=== PATIENT | female | born 1970 | race Hispanic/Latino ===

== ENCOUNTER 2017-11-17 06:06 | Day surgery (SDC) | payer BC ==
[2017-11-16 18:05] LABS: Absolute Lymphocytes (CBC) 2.6 K/uL (0.7-4.9); Absolute Monocytes 0.4 K/uL (0.1-1.3); Absolute Neutrophil 2.9 K/uL (1.8-8.0); Basophils % 0.9 % (0-1.3); Eosinophils % 1.6 % (0-4.4); Hematocrit 32.8 % (36.0-45.0); Lymphocytes % 43.8 % (15.3-44.8); MCH 24.4 pg (27.0-35.0); MCV 74.9 fL (80-100); MPV 8.8 fL (7.6-11.3); RBC Red Blood Cell Count 4.38 M/uL (3.86-4.86)
--- OUTSIDE RECORDS SUMMARY | 2017-11-17 06:17 | XMS REPORT | Clinical Summary ---
:1970 Author Organization [facility] Address [address] [place] [id number] Care Team Providers Name Role Phone Salomón Dexter MD Primary Care Provider Allergies Not on File Current Medications Not on file Active Problems Not on file Encounters Date Type Specialty Care Team Description 07/22/2017 Hospital Encounter Radiology 01/11/2017 Hospital Encounter Radiology Salomón Dexter Abnormal mammogram [facility] 01/11/2017 Hospital Encounter Radiology Salomón Dexter Abnormal mammogram [facility] 01/11/2017 Hospital Encounter Radiology Salomón Dexter Abnormal mammogram [facility] 01/11/2017 Hospital Encounter Radiology Salomón Dexter Abnormal mammogram [facility] 12/30/2016 Hospital Encounter Salomón Mcdonald Canceled (Schedule Order [facility] Error) 12/30/2016 Ancillary Orders Radiology Salomón Dexter MD 12/30/2016 Transcribe Orders Radiology Salomón Dexter Abnormal mammogram [facility] (Primary Dx) after 11/16/2016 Social History Tobacco Use Types Packs/Day Years Used Date Never Assessed Sex Assigned at Date Recorded Not on file Last Filed Vital Signs Not on file Plan of Treatment Health Maintenance Due Date Last Done Comments CERVICAL CANCER SCREENING 1990 INFLUENZA VACCINE 09/21/2017 Procedures Procedure Name Priority Date/Time Associated Comments Diagnosis MAMMO DIAGNOSTIC W Routine 01/11/2017 12:36 PM Abnormal mammogram Results for this CAD LEFT [employer]YSICAL SCI[employer]ES PROFESSOR procedure are in the results section. 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 MAMMO EXTERNAL STUDY Routine 12/01/2016 9:15 AM Results for this CDT procedure are in the results section. after 11/16/2016 Results Mammo Diagnostic w Cad Left (01/11/2017 12:36 PM) Narrative Performed At PROCEDURE: MAMMO DIAGNOSTIC W CAD LEFT, US BREAST COMPLETE LEFT [facility] Left real-time whole breast sonography included all four quadrants and the retroareolar region under close supervision by the radiologist. Computer aided detection was utilized for the interpretation. HISTORY:46-year-old asymptomatic patient who previously underwent mammogram and ultrasound for a mass on mammogram without sonographic correlate. A stereotactic guided biopsy was recommended, but the patient presents today for diagnostic mammogram and ultrasound for additional evaluation. COMPARISON: 12/01/2016 DENSITY: There are scattered areas of fibroglandular density. FINDINGS: A few scattered coarse benign-appearing calcifications are noted. Spot compression magnification views of the lower outer left breast demonstrates a subtle 7 mm low-density circumscribed mass at the left breast 4 o'clock position 7 cm from the nipple. A 4 mm low-density circumscribed mass is noted at the 12 o'clock position of the left breast 4 cm from the nipple as well. ULTRASOUND: Unilateral left whole breast sonography demonstrates a 6 x 5 x 4 mm group of anechoic simple cysts with thin internal septation at the left breast 4 o'clock position 7 cm from the nipple. This represents a sonographic correlate to the low density mass seen on mammogram. A 3 mm anechoic cyst is noted at the left breast 12 o'clock position 2 cm from the nipple representing a sonographic correlate to the 4 mm mass seen on mammogram. There is no suspicious solid or cystic mass or acoustic abnormality. IMPRESSION: 1. No mammographic or sonographic findings of malignancy in the left breast. 2. The previously described mass in the lower outer left breast likely corresponds to a 6 mm group of anechoic simple cysts not identified on prior outside ultrasound. RECOMMENDATION: Recommend short interval follow-up left diagnostic mammogram and ultrasound in 3 to 6 months to ensure stability of this probably benign finding. Findings and recommendations discussed with the patient at the time of the breast ultrasound. BI-RADS 3: PROBABLY BENIGN This facility is accredited by the [employer] for Mammography. A negative x-ray report should not delay biopsy if a dominant or clinically suspicious mass is present.Not all cancers are identified by x-ray. [id number] Performing Organization Address City/State/Zipcode Phone Number [facility] [address] [place] [address] US Breast Complete Left (01/11/2017 12:27 PM) Narrative Performed At PROCEDURE: MAMMO DIAGNOSTIC W CAD LEFT, US BREAST COMPLETE LEFT [facility] Left real-time whole breast sonography included all four quadrants and the retroareolar region under close supervision by the radiologist. Computer aided detection was utilized for the interpretation. HISTORY:46-year-old asymptomatic patient who previously underwent mammogram and ultrasound for a mass on mammogram without sonographic correlate. A stereotactic guided biopsy was recommended, but the patient presents today for diagnostic mammogram and ultrasound for additional evaluation. COMPARISON: 12/01/2016 DENSITY: There are scattered areas of fibroglandular density. FINDINGS: A few scattered coarse benign-appearing calcifications are noted. Spot compression magnification views of the lower outer left breast demonstrates a subtle 7 mm low-density circumscribed mass at the left breast 4 o'clock position 7 cm from the nipple. A 4 mm low-density circumscribed mass is noted at the 12 o'clock position of the left breast 4 cm from the nipple as well. ULTRASOUND: Unilateral left whole breast sonography demonstrates a 6 x 5 x 4 mm group of anechoic simple cysts with thin internal septation at the left breast 4 o'clock position 7 cm from the nipple. This represents a sonographic correlate to the low density mass seen on mammogram. A 3 mm anechoic cyst is noted at the left breast 12 o'clock position 2 cm from the nipple representing a sonographic correlate to the 4 mm mass seen on mammogram. There is no suspicious solid or cystic mass or acoustic abnormality. IMPRESSION: 1. No mammographic or sonographic findings of malignancy in the left breast. 2. The previously described mass in the lower outer left breast likely corresponds to a 6 mm group of anechoic simple cysts not identified on prior outside ultrasound. RECOMMENDATION: Recommend short interval follow-up left diagnostic mammogram and ultrasound in 3 to 6 months to ensure stability of this probably benign finding. Findings and recommendations discussed with the patient at the time of the breast ultrasound. BI-RADS 3: PROBABLY BENIGN This facility is accredited by the [employer] for Mammography. A negative x-ray report should not delay biopsy if a dominant or clinically suspicious mass is present.Not all cancers are identified by x-ray. [id number] Performing Organization Address City/State/Zipcode Phone Number [facility] [phone] [place] [address] Mammo External Study (12/01/2016 9:15 AM) Narrative Performed At This exam was not acquired at a [facility] facility and has not been [facility] interpreted by a [facility] Provider.The exam was imported into our imaging system for comparisons purposes. Performing Organization Address City/State/Zipcode Phone Number [facility] [id number] [place] [address] after 11/16/2016 Insurance Payer Benefit Plan / Group Subscriber ID Type Phone Address BCBS BCBS CHOICE PPO/FEDERAL EMPL PPO xxxxxxxxxxxxxxx PPO
[2017-11-17] MEDS: Ringers Lactate 1,000 ML IV ONE ×2 (06:47→07:21)
[2017-11-17] MEDS ORDERED: FENTANYL CITR 100 MCG/2 ML ONE (06:53)
[2017-11-17] MEDS ORDERED: MIDAZOLAM HCL 2 MG/2 ML INJ ONE (06:53)
[2017-11-17] MEDS ORDERED: PROPOFOL 200 MG/20 ML VIAL IV ONE (06:53)
[2017-11-17] MEDS ORDERED: LIDOCAINE 2% MPF 5 ML VIAL ONE (06:54)
[2017-11-17] MEDS ORDERED: NA CHLORIDE 0.9% 1,000 ML ONE (07:10)
[2017-11-17] MEDS ORDERED: NS 0.9% VIAL 10 ML ONE (07:10)
[2017-11-17] MEDS ORDERED: SILVER NITRATE 1 APPL TOP ONE (07:10)
[2017-11-17] MEDS ORDERED: VASOPRESSIN 20 UNIT/ML VIAL ONE (07:11)
[2017-11-17] MEDS ORDERED: NS 0.9% VIAL 20 ML ONE (07:23)
[2017-11-17] MEDS ORDERED: DEXAMETHASONE 10 MG/ML VIAL ONE (07:31)
[2017-11-17] MEDS ORDERED: KETOROLAC 30 MG/ML INJ ONE ×2 (07:32→08:06)
[2017-11-17] MEDS ORDERED: ONDANSETRON HCL 40 MG/20 ML VIAL ONE (07:41)
[2017-11-17] MEDS ORDERED: KETOROLAC 30 MG/ML INJ IV ONE (07:58)
--- NOTE | 2017-11-17 08:02 | P.BOP ---
Preoperative diagnosis: Menorrhagia Postoperative diagnosis: same Primary procedure: hysteroscopy, D&C, Novasure ablation Estimated blood loss: Less than 5ml Specimen: endometrial currettings Anesthesia: General Transferred to: Recovery Room Condition: Good
[2017-11-17] MEDS ORDERED: MEPERIDINE HCL 25 MG/0.5 ML ONE (08:48)
[2017-11-17] MEDS ORDERED: ONDANSETRON 4 MG/2 ML VIAL ONE (08:49)
[2017-11-17] MEDS ORDERED: MELOXICAM 7.5 MG TAB PO SCH (09:00)
[2017-11-17] MEDS ORDERED: HOME MED 1 EA UNK (Omeprazole [Omeprazole] 20 MG) PO SCH (09:00)
[2017-11-17] MEDS ORDERED: HYDROXYCHLOROQUINE 200MG TAB PO SCH (09:00)
[2017-11-17] MEDS ORDERED: DIPHENHYDRAMINE 25 MG TAB/CAP ONE (09:13)
--- NOTE | 2017-11-17 09:18 | PREOPHP ---
Date of Admission: 11/17/2017 History Of Present Illness: Ms. Benton is a 47-year-old female, 3, para 2-0- 0-2, who comes in today preoperatively. She is scheduled for a hysteroscopy, D and C, NovaSure endom etrial ablation for menometrorrhagia. Has been treated with control pills without success in c ontrolling her bleeding. Pap smear is normal. Endometrial biopsy is suggestive of a polyp, but no e vidence of a precancer, and she has not responded to oral contraceptives. She comes in for more defi nitive therapy and evaluation. Past Medical History: Includes 3 prior vaginal deliveries, prior tubal ligation, prior cholecystecto my. Current Medications: Include oral contraceptives, meloxicam, hydroxychloroquine and iron supplements . Allergies: SHE HAS ALLERGY TO PENICILLIN, CAUSING HIVES. Social History: She does not smoke. Family History: Noncontributory. Review of Systems: She reports no recent cough, cold, fever, or chills. No recent nausea or vomiting. She denies any b reast lumps or knots. She denies any bowel issues or bladder issues. Physical Examination: Lungs: Clear. Cardiac: Regular rate and rhythm without murmurs. Abdomen: There is no organosplenomegaly. Pelvic: Uterus normal size, freely mobile. No obvious adnexal masses or tenderness. Impression: Menorrhagia. Plan: The patient will undergo hysteroscopy, D and C, NovaSure endometrial ablation. She has signed operative permit in my presence. CASEY/YOLANDA Voice ID: [id number]
[2017-11-17] MEDS ORDERED: ACETAMINOPHEN 500 MG TAB ONE (10:24)
--- NOTE | 2017-11-17 19:06 | OP ---
Surgeon: Salomón Engle MD Preoperative Diagnosis: Menorrhagia. Procedures: Hysteroscopy. Dilatation and curettage. NovaSure endometrial ablation. Postoperative Diagnosis: Menorrhagia. Description Of Procedure: After satisfactory level of general anesthesia, the patient was prepped an d draped in the usual fashion in high leg holders. A weighted speculum placed in posterior vagina. Cervix visualized and grasped with a single-tooth tenaculum. Hysteroscopy revealed no obvious endome trial lesions. Brief curettage performed productive of minimal tissue. NovaSure ablation was perfor med with a cavity length of 6.5 cm cavity width of 4 cm, wattage of 143 blue for 57 seconds. The ca vity was ablated. NovaSure device removed. The patient was awakened, taken to recovery room in sati sfactory condition. Estimated total blood loss was less than 5 mL. The patient tolerated all proced ures well. Anesthesia: Wild Roldan CRNA, and Dr. Romain Navas. CASEY/NISREENL Voice ID: [id number] Report ID: [id number]
--- NOTE | 2017-11-17 19:06 | DS ---
Date of Discharge: 11/17/2017 Final Hospital Discharge Diagnosis: Menorrhagia. Complications: None. Procedures: Hysteroscopy, dilatation and curettage of the uterine endometrium. NovaSure endometrial ablation. Hospital Course: The patient is a 47-year-old female admitted for treatment of menorrhagia . She underwent hysteroscopy, D and C, NovaSure endometrial ablation. She was dismissed to be seen back in my office in 2 weeks with prescription for Tylenol No. 3, number 5 for pain relief. Lab work included an admission hemoglobin and hematocrit of 10.7 and 32.8, and a serum test that wa s negative. She was dismissed with the usual post D and C activity restrictions. CASEY/YOLANDA Voice ID: [id number] Report ID: [id number]
== END 2017-11-17 10:55 | disposition home or self-care (01) ==
LOC: OR 06:06
PROVIDERS: ATTEND Specialist
PROC: 0U5B8ZZ Destruction of Endometrium, Via Natural or Artificial Opening Endoscopic (ICD-10-PCS; principal; 2017-11-17 07:30)
PROC: 0UDB7ZX Extraction of Endometrium, Via Natural or Artificial Opening, Diagnostic (ICD-10-PCS; 2017-11-17 07:30)
DX: N92.0 Excessive and frequent menstruation with regular cycle (principal); K21.9 Gastro-esophageal reflux disease without esophagitis; Z90.49 Acquired absence of other specified parts of digestive tract; Z88.0 Allergy status to penicillin
CPT/HCPCS: 36415; 84703; 85025; 88305; J1100; J2175; J2250; J2405; J3010; J7030

== ENCOUNTER 2018-09-28 06:35 | Day surgery (SDC) | payer BC ==
[2018-09-25 11:36] LABS: Urine Appearance CLEAR; Urine Bilirubin NEGATIVE (NEG); Urine Blood 3+ (NEG); Urine Color YELLOW; Urine Glucose NEGATIVE (NEG); Urine Protein NEGATIVE (NEG); Urine Specific Gravity 1.025 (1.005-1.030); Urine Urobilinogen 0.2 mg/dL (0.2-1.0)
[2018-09-25 11:40] LABS: Absolute Lymphocytes (CBC) 2.4 K/uL (0.7-4.9); Hematocrit 38.1 % (36.0-45.0); Lymphocytes % 31.2 % (15.3-44.8); MPV 7.8 fL (7.6-11.3); RBC Red Blood Cell Count 4.61 M/uL (3.86-4.86)
[2018-09-25 12:25] LABS: Urine Microscopic Reflex ORDER UMIC
[2018-09-25 12:35] LABS: Urine Amorphous Sediment 2+ /HPF (NONE SEEN); Urine Bacteria 20-50 /HPF (<20); Urine Culture Reflex Order REFLEXED; Urine Mucus 4+ /HPF (NONE SEEN)
--- OUTSIDE RECORDS SUMMARY | 2018-09-28 06:39 | XMS REPORT | Clinical Summary ---
:1970 Author Organization [facility] Address [address] [place] [id number] Care Team Providers Name Role Phone Verna Salamanca [employer] Primary Care Provider Allergies Active Allergy Reactions Severity Noted Date Comments Penicillins Low 12/21/2016 Other reaction(s): Ampicillin ([id number]) Medications Medication Sig Dispensed Refills Start End Date Status Date omeprazole (PriLOSEC) omeprazole 20 mg capsule,delayed release 0 Active 20 MG capsule Take 1 capsule every day by oral route for 30 days. hydroxychloroquine Take 1 tablet 60 tablet 11 07/22/19 Active (PLAQUENIL) 200 mg (200 mg total) 9 20 tablet by mouth 2 (two) times a day. XELJANZ XR 11 mg tablet TAKE ONE 30 tablet 0 Active extended release 24 hr TABLET BY 9 MOUTH ONCE DAILY. MAY BE TAKEN WITH OR WITHOUT FOOD. SWALLOW TABLET WHOLE. DO NOT CRUSH, SPLIT OR CHEW. STORE AT ROOM TEM tofacitinib (XELJANZ Take 11 mg by 30 tablet 3 09/05/19 Discontinued XR) 11 mg tablet mouth daily. 9 19 extended release 24 hr Active Problems Problem Noted Date History of transfusion 11/21/2017 Allergic Anemia Arthritis Headache Encounters Date Type Specialty Care Team Description 09/04/2018 Refill Rheumatology Dewey Mcallister DO 08/31/2018 Telephone Rheumatology Siobhan Goldman MA 08/04/2018 Telephone Rheumatology Siobhan Goldman MA 07/31/2018 Telephone Rheumatology Luis Estrada MA 07/28/2018 Refill Rheumatology Keara Palacio MA 07/27/2018 Orders Only Rheumatology ProviderShad MD 07/25/2018 Orders Only Rheumatology Dewey Mcallister DO 07/21/2018 Office Visit Rheumatology Dewey Mcallister DO Rheumatoid arthritis with unknown rheumatoid factor status (HCC) (Primary Dx); Sjogren's syndrome, with unspecified organ involvement (HCC); Medication monitoring encounter; Long-term use of high-risk medication; Gastroesophageal reflux disease without esophagitis; Elevated blood pressure reading; Dyspnea on exertion; Dyspnea, unspecified type after 09/27/2017 Family History Medical History Relation Name Comments No Known Problems Brother No Known Problems Father Hypertension Mother Stroke Mother No Known Problems Sister Relation Name Status Comments Brother Father Mother Sister Son Nabor Alive NF2 Social History Tobacco Use Types Packs/Day Years Used Date Never Smoker Smokeless Tobacco: Never Used Alcohol Use Drinks/Week oz/Week Comments Yes 1 Glasses of wine 0.6 Sex Assigned at Date Recorded Not on file Job Start Date Occupation Industry Not on file Not on file Not on file Travel History Travel Start Travel End No recent travel history available. Last Filed Vital Signs Vital Sign Reading Time Taken Blood Pressure 147/95 07/21/2018 2:24 PM CDT Pulse 89 07/21/2018 2:24 PM CDT Temperature 36.7 C (98.1 F) 07/21/2018 2:24 PM CDT Respiratory Rate - - Oxygen Saturation 97% 07/21/2018 2:24 PM CDT Inhaled Oxygen Concentration - - Weight 87.1 kg (192 lb) 07/21/2018 2:24 PM CDT Height 160 cm (5' 3") 07/21/2018 2:24 PM CDT Body Mass Index 34.01 07/21/2018 2:24 PM CDT Plan of Treatment Health Maintenance Due Date Last Done Comments INFLUENZA VACCINE 09/21/2018 Procedures Procedure Name Priority Date/Time Associated Comments Diagnosis QUANTIFERON-TB GOLD Routine 07/21/2018 3:55 Results for this PLUS PM CDT procedure are in the results section. QUANTIFERON-TB GOLD Routine 07/21/2018 3:55 Long-term use of Results for this PLUS PM CDT high-risk procedure are in medication the results section. HEPATITIS B SURFACE Routine 07/21/2018 3:55 Long-term use of Results for this ANTIBODY PM CDT high-risk procedure are in medication the results section. HEPATITIS C ANTIBODY Routine 07/21/2018 3:55 Long-term use of Results for this PM CDT high-risk procedure are in medication the results section. HEPATITIS B CORE Routine 07/21/2018 3:55 Long-term use of Results for this ANTIBODY IGM PM CDT high-risk procedure are in medication the results section. HEPATITIS B SURFACE Routine 07/21/2018 3:55 Long-term use of Results for this ANTIGEN PM CDT high-risk procedure are in medication the results section. HLA-B27 ANTIGEN Routine 07/21/2018 3:40 Elevated blood Results for this PM CDT pressure reading procedure are in the results section. CYCLIC CITRULLINATED Routine 07/21/2018 3:40 Rheumatoid Results for this PEPTIDE AB, IGG PM CDT arthritis with procedure are in unknown rheumatoid the results factor status (HCC) section. RHEUMATOID FACTOR Routine 07/21/2018 3:40 Rheumatoid Results for this PM CDT arthritis with procedure are in unknown rheumatoid the results factor status (HCC) section. C-REACTIVE PROTEIN Routine 07/21/2018 3:40 Rheumatoid Results for this PM CDT arthritis with procedure are in unknown rheumatoid the results factor status (HCC) section. SEDIMENTATION RATE Routine 07/21/2018 3:40 Rheumatoid Results for this PM CDT arthritis with procedure are in unknown rheumatoid the results factor status (HCC) section. COMPREHENSIVE Routine 07/21/2018 3:40 Medication Results for this METABOLIC PANEL PM CDT monitoring procedure are in encounter the results section. CBC WITH PLATELET AND Routine 07/21/2018 3:40 Medication Results for this DIFFERENTIAL PM CDT monitoring procedure are in encounter the results section. CT ANGIOGRAM CHEST W Routine 10/26/2017 WO CONTRAST after 09/27/2017 Results QuantiFERON-TB Gold Plus (07/21/2018 3:55 PM CDT) Quantiferon criteria Comment [facility] 02 Comment: The QuantiFERON-TB Gold Plus result is determined by subtracting the Nil value from either TB antigen (Ag) tube. The mitogen tube serves as a control for the test. QuantiFERON TB1 Ag 0.02 IU/mL [facility] 02 Value QuantiFERON TB2 Ag 0.03 IU/mL [facility] 02 Value Quantiferon NIL value 0.02 IU/mL [facility] 02 Quantiferon mitogen >10.00 IU/mL [facility] 02 value Specimen Narrative Performed At Performed at:[address] [place], [place] [address]CO [address] [place], [id number] Clam Digger: Peter Costa MD, Phone:[phone] Performing Organization Address [facility] Phone Number [facility] 02 QuantiFERON-TB Gold Plus (07/21/2018 3:55 PM CDT) [facility] QuantiFERON Incubation [facility] Incubation performed. Quantiferon TB gold Negative Negative [facility] 02 plus Specimen Narrative Performed At Performed at: [id number] Clam Digger: Shad Rojo MD, Phone:[phone] Performed at:[address] [place], [place] [id number] Clam Digger: Peter Costa MD, Phone:[phone] Performing Organization Address [facility] Phone Number [facility] 02 Hepatitis C antibody (07/21/2018 3:55 PM CDT) [facility] Hepatitis C Ab 0.1 0.0 - 0.9 s/co [facility] Comment: ratio Negative: < 0.8 Indeterminate: 0.8 - 0.9 Positive: > 0.[address] [facility] recommends that a positive HCV antibody result be followed up with a HCV Nucleic Acid Amplification test (314809). Specimen Blood Narrative Performed At Performed at: [facility]CO[id number] Clam Digger: Shad Rojo MD, Phone:[phone] Performing Organization Address [facility] Phone Number [facility] Hepatitis B core antibody IgM (07/21/2018 3:55 PM CDT) [facility] Hepatitis B core IgM Negative Negative [facility] Specimen Blood Narrative Performed At Performed at: [facility]CO[id number] Clam Digger: Shad Rojo MD, Phone:[phone] Performing Organization Address [facility] Phone Number [facility] Hepatitis B surface antibody (07/21/2018 3:55 PM CDT) [facility] Hepatitis B surface Non Reactive [facility] Ab Comment: Non Reactive: Inconsistent with immunity, less than 10 mIU/mL Reactive: Consistent with immunity, greater than 9.9 mIU/ mL Specimen Blood Narrative Performed At Performed at:01 - [facility] [place], [id number] Clam Digger: Shad Rojo MD, Phone:[phone] Performing Organization Address [facility] Phone Number [facility] Hepatitis B surface antigen (07/21/2018 3:55 PM CDT) Pathologist [facility] Hepatitis B surface Ag Negative Negative [facility] Specimen Blood Narrative Performed At Performed at: - [facility] [address] [place], [place] [id number] Clam Digger: Shad Rojo MD, Phone:[phone] Performing Organization Address [facility] Phone Number [facility] HLA-B27 antigen (07/21/2018 3:40 PM CDT) Pathologist [facility] HLA B27 Positive [facility] Comment: HLA-B*27 Positive This patient is positive for HLA-B*27. This procedure rules out the B*27:06 and 27:09 alleles, which the literature suggests are not associated with spondyloarthropathies. B27 allele interpretation for all loci based on IMGT/HLA database version 3.33.0 This test was developed and its performance characteristics determined by [facility].It has not been cleared or approved by the Food and Drug Administration. [facility] CLIA ID Number [id number] This test was performed using PCR (Polymerase Chain Reaction)/SSOP (Sequence Specific Oligonucleotide Probes) technique.SBT (Sequence Based Typing) and/or SSP (Sequence Specific Primers) may be used as supplemental methods when necessary.Please contact [facility] Customer Service at if you have any questions. Director of HLA Laboratory Dr Garrett Plascencia, PhD Specimen Blood Narrative Performed At Performed at:01 - [facility] DNA [facility] [address] [place], [place] [id number] Clam Digger: Garrett Plascencia PhD, Phone:[phone] Performing Organization Address [facility] Phone Number [facility] Cyclic citrullinated peptide antibody, IgG (07/21/2018 3:40 PM CDT) Pathologist [facility] Cyclic citrullin 20 (H) 0 - 19 units [facility] peptide Ab Comment: Negative <20 Weak positive 20 - 39 Moderate [id number] - 59 Strong positive >59 Specimen Blood Narrative Performed At Performed at: - [facility] [address] [facility], [id number] Clam Digger: Peter Costa MD, Phone:[phone] Performing Organization Address City/[facility] Phone Number [facility] Sedimentation rate (07/21/2018 3:40 PM CDT) Sedimentation rate 6 0 - 32 mm/hr [facility] Specimen Blood Narrative Performed At Performed at: - [facility] [address] [facility], [id number] Clam Digger: Shad Rojo MD, Phone:[phone] Performing Organization Address [facility] Phone Number [facility] CBC with platelet and differential (07/21/2018 3:40 PM CDT) WBC 8.4 3.4 - 10.8 [facility] x10E3/uL RBC 4.55 3.77 - 5.28 [facility] x10E6/uL HGB 12.1 11.1 - 15.9 [facility] g/dL HCT 36.9 34.0 - 46.6 % [facility] MCV 81 79 - 97 fL [facility] MCH 26.6 26.6 - 33.0 pg [facility] MCHC 32.8 31.5 - 35.7 [facility] g/dL RDW 15.5 (H) 12.3 - 15.4 % [facility] Platelet count 369Comment: 150 - 450 [facility] Please x10E3/uL note reference interval change Neutrophils 60 Not Estab. % [facility] Lymphocytes 32 Not Estab. % [facility] Monocytes 6 Not Estab. % [facility] Eosinophils 2 Not Estab. % [facility] Basophils 0 Not Estab. % [facility] Neutrophils, absolute 5.0 1.4 - 7.0 [facility] x10E3/uL Lymphocytes, absolute 2.7 0.7 - 3.1 [facility] x10E3/uL Monocytes, absolute 0.5 0.1 - 0.9 [facility] x10E3/uL Eosinophils, absolute 0.1 0.0 - 0.4 [facility] x10E3/uL Basophils, absolute 0.0 0.0 - 0.2 [facility] x10E3/uL Immature granulocytes 0 Not Estab. % [facility] Immature grans (abs) 0.0 0.0 - 0.1 [facility] x10E3/uL Specimen Blood Narrative Performed At Performed at:[address] [place], [place] [id number] Clam Digger: Shad Rojo MD, Phone:[phone] Performing Organization Address [facility] Phone Number [facility] Rheumatoid factor (07/21/2018 3:40 PM CDT) Pathologist [facility] Rheumatoid arthritis latex 12.9 0.0 - 13.9 IU/mL [facility] turbid Specimen Blood Narrative Performed At Performed at:[address] [place], [place] [id number] Clam Digger: Shad Rojo MD, Phone:[phone] Performing Organization Address [facility] Phone Number [facility] C-reactive protein (07/21/2018 3:40 PM CDT) Pathologist [facility] CRP 10.4 (H) 0.0 - 4.9 mg/L [facility] Comment: Effective August 07, 2018 the reference interval for C-Reactive Protein, Quant, will be changing to: Age Male Female 0- 30 days Not Estab. Not Estab. 1 month - 17 years 0 -7 0 -9 >17 years 0 - 10 0 - 10 Specimen Blood Narrative Performed At Performed at:[address] [place], [place] [id number] Clam Digger: Shad Rojo MD, Phone:[phone] Performing Organization Address [facility] Phone Number [facility] Comprehensive metabolic panel (07/21/2018 3:40 PM CDT) Pathologist [facility] Glucose 92 65 - 99 mg/dL [facility] BUN, whole blood 14 6 - 24 mg/dL [facility] Creatinine 0.84 0.57 - 1.00 mg/dL [facility] EGFR Non-Afr. Luxembour[place] 82 >59 mL/min/1.73 [facility] EGFR 95 >59 mL/min/1.73 [facility] BUN/creatinine ratio 17 9 - 23 [facility] Sodium 138 134 - 144 mmol/L [facility] Potassium 4.2 3.5 - 5.2 mmol/L [facility] Chloride 103 96 - 106 mmol/L [facility] CO2 22 20 - 29 mmol/L [facility] Calcium 8.9 8.7 - 10.2 mg/dL [facility] Protein 7.2 6.0 - 8.5 g/dL [facility] Albumin, S 4.3 3.5 - 5.5 g/dL [facility] Globulin, total 2.9 1.5 - 4.5 g/dL [facility] Albumin/globulin ratio 1.5 1.2 - 2.2 [facility] Total bilirubin 0.4 0.0 - 1.2 mg/dL [facility] Alkaline phosphatase 113 39 - 117 IU/L [facility] AST 14 0 - 40 IU/L [facility] ALT 16 0 - 32 IU/L [facility] Specimen Blood Narrative Performed At Performed at:01 - [facility] [address] [place], [id number] Clam Digger: Shad Rojo MD, Phone:[phone] Performing Organization Address City/State/[place] Phone Number [facility] CTA Chest W Wo Contrast (10/26/2017) Narrative Performed At after 09/27/2017 Advance Directives Patient has advance care planning documents on file. For more information, please contact:[id number] [place] [address]
--- OUTSIDE RECORDS SUMMARY | 2018-09-28 06:39 | XMS REPORT | Continuity of Care Document ---
:1970 Author Organization [facility] Address [address] [place] [address] Phone Unavailable Care Team Providers Name Role Phone BRITTANY VASQUES NP Primary Care Physician Insurance Providers Guarantor Sharee Benton Address [address] [address] Email [email or web address] Payer [facility] Policy Number [id number] Subscriber's Name Sathish Benton Relationship Spouse Group Number [id number] Group Name NA Advance Directives Directive Response Recorded Date/Time Patient/Family Given Education Material R/T Y - 10/26/17..AH 10/26/17 12: 18pm Directives? Problems No problem information available. Medications No medication information available. Social History No social history information available. Hospital Discharge Instructions No hospital discharge instruction information available. Plan of Care Prescriptions See Medication Section Functional Status No functional status information available. Allergies, Adverse Reactions, Alerts Allergen Type Severity Reaction Status Last Updated Ampicillin ([id number]) Allergy Mild Active 12/21/16 Immunizations No immunization information available. Vital Signs Acute Vital Signs Vital Response Date/Time Blood Pressure 132/87 mm Hg 10/26/2017 2:06pm Pulse Pulse Rate (adult) 93 beats per minute (60 - 100) 10/26/2017 2:06pm Respiratory Rate 18 breaths per minute (10 - 24) 10/26/2017 2:06pm Temperature Source Temporal Artery Scan 10/26/2017 2:06pm Results Laboratory Results Test Name Result Units Flags Reference Collection Result Comments Date/Time Date/Time White Blood Count 7.9 K/ul 4.0-11.5 10/25/2017 10/25/2017 5:09pm 5:24pm Red Blood Count 3.48 M/ul L 3.80-5.20 10/25/2017 10/25/2017 5:09pm 5:24pm Hemoglobin 7.4 g/dl #L* 10.5-15.7 10/25/2017 10/25/2017 Results have been broadcasted to patient's location and 5:09pm 5:24pm called to (S/W BRITTANY LOZA). By JAKE GARCIA 10/25/17 @9898 Results read back for confirmation. Hematocrit 24.9 % #L 34.0-50.0 10/25/2017 10/25/2017 5:09pm 5:24pm Mean Corpuscular 71.6 fl L 78-98 10/25/2017 10/25/2017 Volume 5:09pm 5:24pm Mean Corpuscular 21.3 pg L 26.2-33.4 10/25/2017 10/25/2017 Hemoglobin 5:09pm 5:24pm Mean Corpuscular 29.8 g/dl L 31.5-36.2 10/25/2017 10/25/2017 Hemoglobin Concent 5:09pm 5:24pm Red Cell 17.5 % H 11.5-15.5 10/25/2017 10/25/2017 Distribution Width 5:09pm 5:24pm Platelet Count 391 K/ul H 137-338 10/25/2017 10/25/2017 5:09pm 5:24pm Mean Platelet 5.1 fl L 8.4-11.8 10/25/2017 10/25/2017 Volume 5:09pm 5:24pm Neutrophils (%) 52.6 % 44.4-80.1 10/25/2017 10/25/2017 (Auto) 5:09pm 5:24pm Lymphocytes (%) 39.7 % 10.0-50.0 10/25/2017 10/25/2017 (Auto) 5:09pm 5:24pm Monocytes (%) 5.6 % 3.6-12.04 10/25/2017 10/25/2017 (Auto) 5:09pm 5:24pm Eosinophils (%) 1.1 % 0.0-5.41 10/25/2017 10/25/2017 (Auto) 5:09pm 5:24pm Basophils (%) 1.0 % H 0.0-0.79 10/25/2017 10/25/2017 (Auto) 5:09pm 5:24pm D-Dimer 1306 ng/mL H* <500 10/25/2017 10/25/2017 Results have been broadcasted to patient's location and 5:09pm 5:46pm called to (BRITTANY VASQUES NP). By SKYLAR RENTERIA 10/25/17 @1745 Random Glucose 105 mg/dL 74-106 10/25/2017 10/25/2017 5:09pm 5:41pm Blood Urea Nitrogen 15 mg/dL 6-20 10/25/2017 10/25/2017 5:09pm 5:41pm Serum Osmolality 275 L 280-300 10/25/2017 10/25/2017 5:09pm 5:41pm Creatinine 1.1 mg/dL H 0.50-0.90 10/25/2017 10/25/2017 5:09pm 5:41pm Glomerular 53.01 L 10/25/2017 10/25/2017 GFR RESULTS ARE REPORTED IN mL/min/1.73m2. Filtration Rate 5:09pm 5:41pm Calc Normal GFR: >60mL/min Moderately decreased GFR: 30-59 mL/min Severely decreased GFR: 15-29 mL/min Kidney Failure (or Dialysis): <15 mL/min The calculated eGFR is not valid for patients younger than 18 years or older than 75 years. BUN/Creatinine 13.6 12-10/25/2017 10/25/2017 Ratio 5:09pm 5:41pm Sodium Level 137 mmol/L 135-145 10/25/2017 10/25/2017 5:09pm 5:41pm Potassium Level 3.8 mmol/L 3.5-5.2 10/25/2017 10/25/2017 5:09pm 5:41pm Chloride Level 104 mmol/L 98-108 10/25/2017 10/25/2017 5:09pm 5:41pm Carbon Dioxide 21 mmol/L 21-32 10/25/2017 10/25/2017 Level 5:09pm 5:41pm Anion Gap 15.8 mEq/L 12-20 10/25/2017 10/25/2017 5:09pm 5:41pm Calcium Level 9.1 mg/dL 8.6-10.0 10/25/2017 10/25/2017 5:09pm 5:41pm Total Protein 7.9 g/dL 6.6-8.7 10/25/2017 10/25/2017 5:09pm 5:41pm Albumin 4.2 g/dL 3.5-5.2 10/25/2017 10/25/2017 5:09pm 5:41pm Globulin 3.7 gm/dL 10/25/2017 10/25/2017 5:09pm 5:41pm Albumin/Globulin 1.1 >1.0 10/25/2017 10/25/2017 Ratio 5:09pm 5:41pm Total Bilirubin 0.3 mg/dL 0.0-1.2 10/25/2017 10/25/2017 5:09pm 5:41pm Aspartate Amino 14 U/L L 15-32 10/25/2017 10/25/2017 Transf (AST/SGOT) 5:09pm 5:41pm Alanine 9 U/L 0-33 10/25/2017 10/25/2017 Aminotransferase 5:09pm 5:41pm (ALT/SGPT) Total Alkaline 82 U/L 35-105 10/25/2017 10/25/2017 Phosphatase 5:09pm 5:41pm Procedures Procedure Status Date Provider(s) COMPREHEN METABOLIC PANEL Completed 10/25/17 FIBRIN DEGRADJ D-DIMER Completed 10/25/17 COMPLETE CBC W/AUTO DIFF WBC Completed 10/25/17 ROUTINE VENIPUNCTURE Completed 10/25/17 CT ANGIOGRAPHY CHEST Completed 10/26/17 Computed tomography angiography of chest for Completed 10/26/17 BRITTANY VASQUES NP pulmonary embolism Encounters Encounter Location Arrival/Admit Date Discharge/Depart Date Attending Provider Discharged Shruth[place] 10/26/17 12:19pm 11/20/17 11:59pm BRITTANY VASQUES [facility] Registered [place] 10/26/17 9:47am BRITTANY VASQUES [facility] Registered [place] 10/25/17 4:53pm BRITTANY VASQUES [facility]
--- OUTSIDE RECORDS SUMMARY | 2018-09-28 06:39 | XMS REPORT | Encounter Summary ---
:1970 Author Care Team Providers Name Role Phone Verna Mccollum NP Primary Care Provider [phone] Reason for Visit Follow Up Visit Instructions 1. Left lower quadrant pain unlisted imaging order - abdomen 2 views hyoscyamine 0.125 mg sublingual tablet Discussion Note RTC for any other concerns Patient educational handouts: No information available. Plan of Care Patient Instructions rec pt try antispasmodic as directed; monitor signs and symptoms; ensure adequate rest, hydration and nutrition Reminders Provider Appointments Follow up Verna Salamanca NP 08/23/2018 10:15AM Lab None recorded. Referral None recorded. Procedures None recorded. Surgeries None recorded. Imaging Unlisted [facility] Imaging Order 08/03/2018 [facility] (Scheduling) Medications Name Start Date Advil hyoscyamine 0.[address] 1 tablet every 4 hours by sublingual route as needed. omeprazole 20 mg capsule,delayed release Take 1 capsule every day by oral route for 30 days. Xeljanz XR 11 mg tablet,extended release Medications Administered None recorded. Vitals Height Weight BMI Blood Pressure 63 in 189 lbs 33.5 kg/m2 139/86 mm[Hg] Lab Results Date Name Specimen Result Interpretation Description Value Range Status Address 07/05/2018 Urinalysis Normal Color, light Final [facility] Complete, Urine yellow [facility] (Lab): 104 [facility] Normal Appearance, clear clear Final [facility] Urine [facility] (Lab): 104 [facility] Normal Urine negative negati Final [facility] Glucose ve [facility] (Lab): 104 [facility] Normal Bilirubin, negative negati Final [facility] Urine ve [facility] (Lab): 104 [facility] Normal Ketone, negative negati Final [facility] Urine ve [facility] (Lab): 104 [facility] Normal Specific 1.017 1.003- Final [facility] [place],urin 1.030 [facility] (Lab): [address] St, [place] Blood Urine =1 negati Final [facility] ve [facility] (Lab): [address] [place] [address] Normal pH,urine 7.000 5-9 Final [facility] (Lab): [address] [place] [address] Normal Protein negative negati Final [facility] Urine (UA) ve [facility] (Lab): [address] [place] [address] Normal Urobilinoge normal 0.2-1. Final [facility] n, Urine mg/dL 0 Regional mg/dL [facility] (Lab): [address] [place] [address] Normal Nitrate, negative negati Final [facility] Urine ve [facility] (Lab): [address] [place] [address] Urine =4 negati Final [facility] Leukocyte ve [facility] Esterase [facility] [place] (Lab): [address] [place] [address] RBC, Urine =11-14 0-5 Final [facility] /[hpf] /[hpf] [facility] (Lab): [address] [place] [address] WBC, Urine =15-19 0-5 Final [facility] /[hpf] /[hpf] [facility] (Lab): [address] [place] [address] Normal Epithelial =1-5 0-5 Final [facility] Cell /[hpf] /[hpf] [facility] (Lab): [address] [place] [address] Normal Bacteria, none none Final [facility] Urine detected detect Regional /[hpf] /[hpf] [facility] (Lab): [address] [place] [address] Casts,urine =15-19 none Final [facility] /lpf detect Regional /lpf [facility] (Lab): [address] [place] [address] Normal Urine yes Final [facility] Culture [facility] (Lab): [address] [place] [address] 07/05/2018 CBC W/ Auto Normal White Blood 7.4 K/uL 4.0-11 Final [facility] Diff Count .5 [facility] K/uL [facility] (Lab): [address] [place] [address] Normal Red Blood 4.81 M/uL 3.80-5 Final [facility] Count .20 [facility] M/uL [facility] (Lab): [address] [place] [address] Normal Hemoglobin 12.6 g/dL 10.5-1 Final [facility] 5.7 Regional g/dL [facility] (Lab): [address] [place] [address] Normal Hematocrit 39.5 % 34.0-5 Final [facility] 0.0 % [facility] (Lab): [address] [place] [address] Normal Mean 82.2 fL 78-98 Final [facility] Corpuscular fL [facility] (Lab): [address] [place] [address] Normal Mean 26.2 pg 26.2-3 Final [facility] Corpuscular 3.4 pg [facility] Hemoglobin [facility] (Lab): [address] [place] [address] Normal Mean 31.8 g/dL 31.5-3 Final [facility] Corpuscular 6.2 [facility] HGB Conc g/dL [facility] (Lab): [address] [place] [address] Normal Red Cell 13.4 % 11.5-1 Final [facility] Distribution 5.5 % [facility] (Lab): [address] [place] [address] High Platelet 349 K/uL 137-33 Final [facility] Count 8 K/uL [facility] (Lab): [address] [place] [address] Low Mean 6.0 fL 8.4-11 Final [facility] Platelet .8 fL [facility] (Lab): [address] [place] [address] Normal Neutrophils 56.9 % 44.4-8 Corrected [facility] % 0.1 % [facility] (Lab): [address] [place] [address] Normal Lymphocyte% 37.9 % 10.0-5 Final [facility] 0.0 % [facility] (Lab): [address] [place] [address] Low [place] % 2.7 % 3.6-12 Final [facility] .04 % [facility] (Lab): [address] [place] [address] Normal Eos % 1.7 % 0.0-5. Final [facility] 41 % [facility] (Lab): [address] [place] [address] High Basophil % 0.8 % 0.0-0. Final [facility] 79 % [facility] (Lab): [address] [place] [address] 07/05/2018 Differential Normal Neutrophils Incomplete [facility] Panel, Blood [facility] (Lab): [address] [place] [address] Normal Band Incomplete [facility] (Lab): [address] [place] [address] Normal Lymphocyte Incomplete [facility] (Lab): [address] [place] [address] Normal Monocyte Incomplete [facility] (Lab): [address] [place] [address] Normal Platelet Incomplete [facility] Estimate [facility] (Lab): [address] [place] [address] Normal Differentia Incomplete [facility] l comment-P [facility] (Lab): [address] [place] [address] 07/05/2018 CMP, Serum or Normal Glucose 87 mg/dL 74-106 Final [facility] Plasma mg/dL [facility] (Lab): [address] [place] [address] Normal Blood Urea 12 mg/dL 6-20 Final [facility] Nitrogen mg/dL [facility] (Lab): [address] [place] [address] Low Osmolality 275 280-30 Final [facility] Calculated, 0 [facility] Serum [facility] (Lab): [address] [place] [address] Normal Creatinine 0.7 mg/dL 0.50-0 Final [facility] .90 Regional mg/dL [facility] (Lab): [address] [place] [address] Normal Glomerular >60.00 Final [facility] Filtration [facility] (Lab): [address] [place] [address] Normal BUN/creatin 17.1 12-20 Final [facility] ine Ratio [facility] (Lab): [address] [place] [address] Normal Sodium 138 135-14 Final [facility] Level mmol/L 5 Regional mmol/L [facility] (Lab): [address] [place] [address] Normal Potassium 3.9 3.5-5. Final [facility] Level mmol/L 2 [facility] mmol/L [facility] (Lab): [address] [place] [address] Normal Chloride 98 mmol/L 98-108 Final [facility] Level mmol/L [facility] (Lab): [address] [place] [address] Normal Co2 23 mmol/L 21-32 Final [facility] mmol/L [facility] (Lab): [address] [place] [address] High Anion Gap 20.9 12-20 Final [facility] mEq/L mEq/L [facility] (Lab): [address] [place] [address] Normal Calcium 9.2 mg/dL 8.6-10 Final [facility] Level .0 [facility] mg/dL [facility] (Lab): [address] [place] [address] Normal Total 7.8 g/dL 6.6-8. Final [facility] Protein 7 g/dL [facility] (Lab): [address] [place] [address] Normal Albumin 4.4 g/dL 3.5-5. Final [facility] 2 g/dL [facility] (Lab): [address] [place] [address] Normal Globulin 3.4 gm/dL Final [facility] (Lab): [address] [place] [address] Normal A/g Ratio 1.3 >1.0 Final [facility] (Lab): [address] [place] [address] Normal Bilirubin,t 0.4 mg/dL 0.0-1. Final [facility] otal 2 [facility] mg/dL [facility] (Lab): [address] [place] [address] Normal AST/SGOT 19 U/L 15-32 Final [facility] U/L [facility] (Lab): [address] [place] [address] Normal ALT/SGPT 16 U/L 0-33 Final [facility] U/L [facility] (Lab): [address] [place] [address] High Alkaline 124 U/L 35-105 Final [facility] Phosphatase, U/L [facility] (Lab): [address] [place] [address] 07/05/2018 Lipid Panel, Normal Cholesterol 188 mg/dL 150-20 Final [facility] Serum Level 0 Regional mg/dL [facility] (Lab): [address] [place] [address] Normal Triglycerid 94 mg/dL <150 Final [facility] es Level mg/dL [facility] (Lab): [address] [place] [address] Low HDL 62 mg/dL >65 Final [facility] Cholesterol mg/dL [facility] (Lab): [address] [place] [address] High LDL 124 mg/dL <100 Final [facility] Cholesterol mg/dL [facility] (Lab): [address] [place] [address] Normal Cholesterol 3.032 Final [facility] Risk Ratio [facility] (Lab): [address] [place] [address] 07/05/2018 TSH, Serum or Normal Thyroid 2.46 0.36-3 Final [facility] Plasma Stimulating uIU/mL .74 [facility] Hormone L uIU/mL [facility] (Lab): [address] [place] [address] 07/05/2018 Culture, Bacteria Ur Final [facility] Urine Cult [facility] (Lab): [address] [place] [address] 07/05/2018 Antibiotic Susceptible Gentamicin <4 ug/mL Not [facility] Sensitivity Islt Song Reported [facility] (Lab): [address] [place] [address] Susceptible Ampicillin <8 ug/mL Not [facility] Islt Song Reported [facility] (Lab): [address] [place] [address] Susceptible Cefazolin <8 ug/mL Not [facility] Islt Song Reported [facility] (Lab): [address] [place] [address] Susceptible Tmp Smx =2/38 Not [facility] Islt Song ug/mL Reported [facility] (Lab): [address] [place] [address] Susceptible Tetracyclin <4 ug/mL Not [facility] e Islt Song Reported [facility] (Lab): [address] [place] [address] Susceptible Amoxicillin =8/4 Not [facility] +clav Islt ug/mL Reported [facility] (Lab): [address] [place] [address] Susceptible Tobramycin <4 ug/mL Not [facility] Islt Song Reported [facility] (Lab): [address] [place] [address] Susceptible Nitrofurant <32 ug/mL Not [facility] oin Islt Song Reported [facility] (Lab): [address] [place] [address] Susceptible Cefotaxime <2 ug/mL Not [facility] Islt Song Reported [facility] (Lab): [address] [place] [address] Susceptible Cefepime <8 ug/mL Not [facility] Islt Song Reported [facility] (Lab): [address] [place] [address] Susceptible Levofloxaci <2 ug/mL Not [facility] n Islt Song Reported [facility] (Lab): [address] [place] [address] Susceptible Pip+tazo <16 ug/mL Not [facility] Islt Song Reported [facility] (Lab): [address] [place] [address] Susceptible Ceftazidime <1 ug/mL Not [facility] Islt Song Reported [facility] (Lab): [address] [place] [address] Susceptible Ceftriaxone <8 ug/mL Not [facility] Islt Song Reported [facility] (Lab): [address] [place] [address] Susceptible Ciprofloxac <1 ug/mL Not [facility] in Islt Song Reported [facility] (Lab): [address] [place] [address] Susceptible Imipenem <4 ug/mL Not [facility] Islt Song Reported [facility] (Lab): [address] [place] [address] Susceptible Ampicillin+ =8/4 Not [facility] sulbac Islt ug/mL Reported [facility] (Lab): [address] [place] [address] Susceptible Ertapenem <2 ug/mL Not [facility] Islt Song Reported [facility] (Lab): [address] [place] [address] Susceptible Aztreonam <8 ug/mL Not [facility] Islt Song Reported [facility] (Lab): [address] [place] [address] Susceptible [id number] <4 ug/mL Not [facility] Reported [facility] (Lab): [address] [place] [address] Susceptible Meropenem <4 ug/mL Not [facility] Islt Song Reported [facility] (Lab): [address] [place] [address] Allergies Code Code System Name Reaction Severity Status Onset 73324 RxNorm Sumatriptan Nausea Moderate to Active 03/12/2015 Severe Penicillins Active Problems Name Status Onset Date Source Rheumatoid Arthritis Active Encounter Procedures Date Name Performed by Tubal Ligation Information not available Cholecystectomy Information not available 08/03/2018 Unlisted Imaging Order [facility] ( Scheduling) [address] [place] [address] (Work [address]) Vaccine List Vaccine Type Tdap 02/21/2013 Social History Smoking Status Never Smoker Past Encounters 08/03/2018 Left Lower Quadrant Pain Verna Salamanca, SALES CORRESPONDENT: [address] [facility], [address], [place] [address], Ph. 07/05/2018 Adult Health Examination; Elevated Blood-pressure Reading without Diagnosis of Hypertension Verna Salamanca, SALES CORRESPONDENT: [address] [facility], [address], [place] [address], Ph. History of Present Illness Note: pt to clinic for f/u on blood pressure; she has not been checking at home; she recently saw new delivery supervisor and not having as much swelling and pain; she states headaches have improved; she reports lower abdominal pain/ pressure mainly in left lower quadrant for over 1 month; she states she has had symptoms for several years but now wanting to have answers; she reports worse after eating and improves after bowel movement; she reports back and forth with diarrhea and constipation; BM this am; hx of constipation; takes stool softeners as needed Review of Systems General Adult ROS Reported By: Patient Constitutional: Constitutional: no fever Cardiovascular: Cardiovascular: no chest pain Respiratory: Respiratory: no cough, no wheezing, no shortness of breath Gastrointestinal: Gastrointestinal: no vomiting, no diarrhea, abdominal pain Genitourinary: Genitourinary: no difficulty urinating, no increased frequency Musculoskeletal: Musculoskeletal: no swelling in the extremities Neurologic: Neurologic: no dizziness, no headaches Physical Exam Johana Brief Adult Exam - M/F Reported By: Patient Constitutional: General Appearance: healthy-appearing, well-nourished, well-developed. Level of Distress: NAD. Ambulation: ambulating normally Psychiatric: Mental Status: active and alert Lungs: Auscultation: breath sounds normal Cardiovascular: Heart Auscultation: RRR, normal S1, normal S2, no murmurs Abdomen: Bowel Sounds: normal. Inspection and Palpation: soft, non-distended, no guarding, LLQ tenderness
--- OUTSIDE RECORDS SUMMARY | 2018-09-28 06:39 | XMS REPORT | Encounter Summary ---
:1970 Author Care Team Providers Name Role Phone Verna Mccollum NP Primary Care Provider [phone] Reason for Visit SOB; possible UTI Instructions 1. Adult health examination lipid panel, serum CBC w/ auto diff CMP, serum or plasma TSH, serum or plasma urinalysis, complete 2. Elevated blood-pressure reading without diagnosis of hypertension Discussion Note RTC for any other concerns; counseled on diet and exercise Patient educational handouts: No information available. Plan of Care Patient Instructions ensure adequate rest, hydration and nutrition; monitor blood pressure and keep log; keep appt with rheumatology Reminders Provider Appointments Follow-Up Verna Salamanca NP LABS 08/03/2018 8:15AM Lab Lipid Panel, [facility] Serum 07/05/2018 [facility] (Lab) CBC W/ Auto [facility] Diff 07/05/2018 [facility] (Lab) CMP, Serum [facility] or Plasma 07/05/2018 [facility] (Lab) TSH, Serum [facility] or Plasma 07/05/2018 [facility] (Lab) Urinalysis, [facility] Complete 07/05/2018 [facility] (Lab) Referral None recorded. Procedures None recorded. Surgeries None recorded. Imaging None recorded. Medications Name Start Date omeprazole 20 mg capsule,delayed release Take 1 capsule every day by oral route for 30 days. Medications Administered None recorded. Vitals Height Weight BMI Blood Pressure 63 in 189 lbs 16 oz 33.7 kg/m2 143/96 mm[Hg] Lab Results None recorded. Allergies Code Code System Name Reaction Severity Status Onset 37698 RxNorm Sumatriptan Nausea Moderate to Active 03/12/2015 Severe Penicillins Active Problems Name Status Onset Date Source Rheumatoid Arthritis Active Encounter Procedures Date Name Performed by Tubal Ligation Information not available Cholecystectomy Information not available Vaccine List Vaccine Type Tdap 02/21/2013 Social History Smoking Status Never Smoker Past Encounters 07/05/2018 Adult Health Examination; Elevated Blood-pressure Reading without Diagnosis of Hypertension Verna Salamanca NP: [address] [facility], [address], [place] [address], Ph. History of Present Illness Note: pt to clinic to establish care; she was seeing gavin but wants to switch; hx of rheumatoid arthritis- was seeing [facility] but recently switched to at [facility]; she reports feels shortof breath at times; she thinks may have urinary infection; reports some itching in vaginal area; sheis needing annual labs because no labs in about 1 year Review of Systems General Adult ROS Reported By: Patient Constitutional: Constitutional: no fever Cardiovascular: Cardiovascular: no chest pain, no palpitations Respiratory: Respiratory: no cough, no wheezing, shortness of breath Gastrointestinal: Gastrointestinal: no abdominal pain, no vomiting, no diarrhea Genitourinary: Genitourinary: no difficulty urinating, no increased frequency Musculoskeletal: Musculoskeletal: no swelling in the extremities, arthralgias/ joint pain Neurologic: Neurologic: no dizziness, no headaches Endocrine: Endocrine: no fatigue Physical Exam Johana Brief Adult Exam - M/F Reported By: Patient Constitutional: General Appearance: healthy-appearing, well-nourished, well-developed. Level of Distress: NAD. Ambulation: ambulating normally Psychiatric: Mental Status: active and alert Lungs: Auscultation: breath sounds normal Cardiovascular: Heart Auscultation: RRR, normal S1, normal S2, no murmurs Abdomen: Bowel Sounds: normal. Inspection and Palpation: soft, non-distended, no tenderness, no guarding Skin: Inspection and palpation: no rash Musculoskeletal: Edema absent
--- OUTSIDE RECORDS SUMMARY | 2018-09-28 06:39 | XMS REPORT ---
:1970 [facility] Address [address] [place] [address] [address] Care Team Providers Name Role Phone Juan Jose Haji Unavailable Unavailable Problems This patient has no known problems. Allergies, Adverse Reactions, Alerts This patient has no known allergies or adverse reactions. Medications This patient has no known medications. Encounters Start End Encounter Admission Attending Care Care Encounter Date/Time Date/Time Type Type Clinicians Facility Department ID 2018-08-29 2018-08-29 Outpatient NOEMI Haji [id number] 14:49:00 14:49:00 Juan Jose
--- OUTSIDE RECORDS SUMMARY | 2018-09-28 06:40 | XMS REPORT | Encounter Summary ---
:1970 Author Care Team Providers Name Role Phone Verna Mccollum CABLE [employer]KER Primary Care Provider [phone] Reason for Visit migraines Instructions 1. Migraine with aura Maxalt 10 mg tablet Discussion Note RTC for any other concerns Patient educational handouts: No information available. Plan of Care Patient Instructions medication as directed; ensure adequate rest, hydration and nutrition Reminders Provider Appointments None recorded. Lab None recorded. Referral None recorded. Procedures None recorded. Surgeries None recorded. Imaging None recorded. Medications Name Start Date Advil hydroxychloroquine 200 mg tablet Maxalt 10 mg tablet take 1 tablet at the onset of a migraine may repeat [id number] x 2 (do not exceed 30mg/24hours) omeprazole 20 mg capsule,delayed release Take 1 capsule every day by oral route for 30 days. Xeljanz XR 11 mg tablet,extended release Medications Administered None recorded. Vitals Height Weight BMI Blood Pressure 63 in 192 lbs 9.6 oz 34.1 kg/m2 131/88 mm[Hg] Lab Results Date Name Specimen Result Interpretation Description Value Range Status Address 09/25/2018 Urinalysis, No observation [place] Complete recorded. [facility] Lab: [place] Allergies Code Code System Name Reaction Severity Status Onset 95540 RxNorm Sumatriptan Nausea Moderate to Active 03/12/2015 Severe Penicillins Active Problems Name Status Onset Date Source Rheumatoid Arthritis Active Encounter Procedures Date Name Performed by Ablation, Hifu, Prostate Information not available Tubal Ligation Information not available Cholecystectomy Information not available Vaccine List Vaccine Type Tdap 02/21/2013 Social History Tobacco Smoking Status Never Smoker Past Encounters 09/26/2018 Migraine with Aura Verna Salamanca CABLE MAKER: [address] [place] [address], [address], [place] [address], Ph. History of Present Illness Note: pt to clinic for migraines; hx of migraines; she states she had migraine last week for 3 days; she is going to have hysterectomy on ; needs refill of maxaltReview of Systems: ROS as noted in the HPI Review of Systems None recorded. Physical Exam Johana Brief Adult Exam - M/F Reported By: Patient Constitutional: General Appearance: healthy-appearing, well-nourished, well-developed. Level of Distress: NAD. Ambulation: ambulating normally Psychiatric: Mental Status: active and alert Lungs: Auscultation: breath sounds normal Cardiovascular: Heart Auscultation: RRR, normal S1, normal S2, no murmurs Musculoskeletal: Edema absent Notes: neuro nonfocal
[2018-09-28] MEDS ORDERED: Ringers Lactate 1,000 ML IV ONE ×4 (06:59→07:16)
[2018-09-28] MEDS ORDERED: SCOPOLAMINE HYDROBROMIDE PATCH TD ONE (06:59)
[2018-09-28] MEDS ORDERED: CEFAZOLIN/SWI 2gm 2 GM/20 ML SYR ONE (07:10)
[2018-09-28] MEDS ORDERED: PROPOFOL 200 MG/20 ML VIAL IV ONE (07:17)
[2018-09-28] MEDS ORDERED: FENTANYL CITR 100 MCG/2 ML ONE (07:18)
[2018-09-28] MEDS ORDERED: LIDOCAINE 2% MPF 5 ML VIAL ONE (07:19)
[2018-09-28] MEDS ORDERED: ROCURONIUM 50 MG/5 ML VIAL IV ONE (07:19)
[2018-09-28] MEDS ORDERED: ONDANSETRON 4 MG/2 ML VIAL ONE (07:20)
[2018-09-28] MEDS ORDERED: dexAMETHasone 10 MG/ML VIAL ONE (07:20)
[2018-09-28] MEDS ORDERED: MIDAZOLAM HCL 2 MG/2 ML INJ ONE (07:20)
[2018-09-28] MEDS ORDERED: FENTANYL CITR 250 MCG/5 ML ONE (08:17)
[2018-09-28] MEDS ORDERED: KETOROLAC 30 MG/ML INJ ONE (09:45)
[2018-09-28] MEDS: MEPERIDINE HCL 25 MG/0.5 ML ONE ×2 (11:00→11:15)
[2018-09-28] MEDS ORDERED: MORPHINE 4 MG/ML SYR ONE (11:04)
[2018-09-28] MEDS ORDERED: PROMETHAZINE 25 MG/ML VIAL ONE (11:06)
[2018-09-28] MEDS ORDERED: HYDROCODONE/APAP 5/325 MG TAB ONE (12:25)
--- NOTE | 2018-09-28 20:14 | OP ---
Date of Procedure: 09/28/2018 Surgeon: Nasreen Payan MD Preoperative Diagnoses: Pelvic pain, history of menorrhagia, status post ablation now with irregular periods, history of severe dysmenorrhea and dyspareunia. Postoperative Diagnoses: Pelvic pain, history of menorrhagia, status post ablation now with irregula r periods, history of severe dysmenorrhea and dyspareunia, bilateral hematosalpinx, and peritoneal ma ss. Procedures Performed: 1.Total laparoscopic hysterectomy and bilateral salpingectomy. 2.Left ovariopexy after adhesions of the left tube from the lateral wall. 3.Cystoscopy. 4.Peritoneal mass excision. Anesthesia: General. Specimens: Uterus and bilateral tubes. Complications: No complications. Drains: No drains. Condition: Stable. Indications For Procedure: The patient is a 48-year-old presented with postablation hematometra, whi ch was later relieved. The patient has a history of heavy periods for which she underwent an ablatio n late last year with her election clerk. Although her periods have improved, she has always had sever e dysmenorrhea, but now has pain even during the times when she does not have her period and pelvic p ain. Deep dyspareunia as well has gotten much worse. So, we have she has been referred to me for co nformation of hysterectomy. Description Of Procedure: After discussing with the patient all her possible etiologies of adenomyos is, endometriosis, possible tubes being swollen due to the blockage of the cervix with blood. Consen sachin her for total laparoscopic hysterectomy and bilateral salpingectomy and possible endometriosis ex cision. Ovaries were to be preserved. Discussed about the options of removing them or keeping them. The patient preferred to continue to have them. She has rheumatoid arthritis. Has had history of severe migraines in the past. Hormone therapy could be somewhat difficult and so plan was to leave h er ovaries behind. She held her rheumatoid medications, the Xeljanz and the hydroxychloroquine 2 weeks before the proced ure and then she was brought to the OR. She got 2 g of Ancef preop. She was taken back to the OR af ter reconsenting, placed in supine fashion on the operating table after general anesthesia was given. She was placed in dorsal lithotomy position. Pelvic exam was performed. Uterus anteflexed, somewh at enlarged. No adnexal masses noted. Abdomen, vulva, vagina, and perineum were prepped and draped in a sterile fashion. Arms were tucked by the side and time-out was done prior to this and SCDs were started as well. The cervix was exposed with a speculum. A medium VCare was introduced into the uterus without too mu ch of a problem. Joyner was placed attached to cysto tubing and this was attached to an LR bag, empti ed 300. After the bottom was draped, an infraumbilical 1 cm incision was made at the old scar site infraumbil ically. Fascia was incised, tagged with suture of 0 Vicryl. Peritoneum entered sharply, S retractor s placed, Joie introduced, site of entry was checked, unremarkable. A 10 mm suprapubic and 5 mm left lower quadrant ports were placed under direct vision and the case st arted. There was a peritoneal mass tucked between the bladder peritoneum and anterior abdominal wall on the left side. This is likely a retention cyst or a lipoma. With a push-spread technique, the a dhesions were taken down and the entire mass was excised from the peritoneum with sharp dissection wi th scissors. This was placed in the posterior cul-de-sac and later retrieved through the vagina with all the other specimens. On visualization, uterus was enlarged, both tubes were enlarged, and there appeared to be clear evide nce of hematosalpinx on both sides. Ureter was traced from the pelvic brim to the ureteric tunnel wi thout any distortion and was noted to be without any distortion. Both ovaries were normal. Uterus s lightly enlarged. The VCare cup was found and the peritoneal incision made with a pair of scissors. Then, dissection was started in the left adnexa. The left lateral wall and mesosalpinx were scarred together with the left tube. The mesosalpinx was opened up in order for me to dissect the tube away from the sidewall. Once this was done, the dissection was carried through the mesosalpinx all the w ay to the insertion of the tube and to the fimbriated end. The fimbriated end was then detached from the ovary and the utero-ovarian ligament taken down after the posterior peritoneum was taken down. Round ligament was taken down. Anterior bladder flap was raised all the way to the opposite side. P osterior peritoneum taken down to the level of the left uterosacral. The broad ligament was then ske letonized to expose the vessels. On the other side, similar dissection was performed to take down th e mesosalpinx, the utero-ovarian ligament cut, round ligament taken, right anterior bladder flap was connected, posterior taken down to the right uterosacral. Vesicovaginal space was found at the level of the VCare cup. Monopolar hook blade was used to make the incision to then dissect the defect int o the retroperitoneal area. The vessels were isolated, first on the right side than on the left. Th e medial incision made with the help of a monopolar hook. Then, bipolar basket tip was used to take down the vessels on this side and on the opposite side. Cardinal ligaments were taken down as well. Circumferential colpotomy with a monopolar hook blade and specimen retrieved through the vagina. Th e tube on the right side was also cleanly removed and pulled out through the vagina as well as the pe ritoneal mass. A #6 glove was stuffed with abdominal sponge and then placed in the vagina for occlusion. The cuff w as closed with 2 simple 0 Vicryl sutures at both ends and 3 [id number] in the middle with good apposition and full-thickness. The left ovary was dissected due to the presence of the adhesions an d was isolated and appeared to be high risk for torsion. So, this was then sutured with 3-0 Vicryl t o the lateral peritoneum superior to the round ligament starting at the round ligament. No windows w ere left for any potential bowel herniation. There was excellent hemostasis. All instruments were r emoved. There was good peristalsis of the ureter without any electrical, mechanical, or thermal inju ry to them. All the trocars were removed, gas desufflated. Fascia at the umbilicus closed with 2 fi [id number] with 0 Vicryl and skin incisions were closed with the help of 4-0 Monocryl. Deep stit ch was placed at the suprapubic site because I could not close the incision on the fascia here, low r isk of herniation because of the significant thickness of the anterior abdominal wall. Joyner was rem deborah. The vaginal sponge was removed. Cystoscopy with 17-Lao sheath 30-degree lens and normal sa line for distention. Normal cystoscopy. Normal jets of urine from both ureteric orifices. No evide nce of any trauma to the bladder. The bladder was drained. The vagina was checked. All the instrum ents and needle and sponges were counted and were correct at the end of the case. Estimated blood lo ss was 100. She will follow up with me in 1 week. DEISY Voice ID: [id number] Report ID: [id number]
== END 2018-09-28 13:45 | disposition home or self-care (01) ==
LOC: OR 06:35
PROVIDERS: ATTEND Obstetrics & Gynecology
PROC: 0UT74ZZ Resection of Bilateral Fallopian Tubes, Percutaneous Endoscopic Approach (ICD-10-PCS; 2018-09-28)
PROC: 0DBW4ZZ Excision of Peritoneum, Percutaneous Endoscopic Approach (ICD-10-PCS; 2018-09-28)
PROC: 0UT94ZZ Resection of Uterus, Percutaneous Endoscopic Approach (ICD-10-PCS; principal; 2018-09-28 07:30)
DX: N83.6 Hematosalpinx (principal); N92.6 Irregular menstruation, unspecified; N94.5 Secondary dysmenorrhea; N94.12 Deep dyspareunia; N94.6 Dysmenorrhea, unspecified; K66.8 Other specified disorders of peritoneum; M06.061 Rheumatoid arthritis without rheumatoid factor, right knee; G43.839 Menstrual migraine, intractable, without status migrainosus; N73.6 Female pelvic peritoneal adhesions (postinfective)
CPT/HCPCS: 58571; 58662; 85025; 87086; 36415; 86900; 86850; 81025; 86901; 88307; J2704; J2550; J2250; J3010 ×2; J1100; J2175; J0690; J2405; 81003; 81015; 87088